=== PATIENT | female | born 1960 | race Caucasian/White ===

== ENCOUNTER 2021-06-25 10:00 | Inpatient (IN) ==
[2021-06-25] MEDS ORDERED: 0.9 % Sodium Chloride 1,000 ML IVC ONE (10:29)
[2021-06-25] MEDS ORDERED: Ipratropium/Albuterol Neb 3 ML IH ONE (10:29)
[2021-06-25] MEDS ORDERED: Azithromycin 500 MG in 0.9 % Sodium Chloride 250 ML IVPB ONE (10:29)
[2021-06-25] MEDS ORDERED: cefTRIAXone 2,000 MG in 0.9 % Sodium Chloride 10 ML IVP ONE (10:29)
[2021-06-25] MEDS ORDERED: methylPREDNISolone 125 MG/2 ML VIAL IVP ONE (10:29)
[2021-06-25] MEDS ORDERED: Acetaminophen 325 MG TABLET PO ONE (10:32)
[2021-06-25 10:51] LABS: Basophils % 0.4 %; Eosinophils # 0.2 K/mcL (0.0-0.6); Eosinophils % 1.5 %; Hematocrit 40.5 % (35.3-44.9); Hemoglobin 13.1 g/dL (11.5-15.4); Immature Granulocytes % 0.2 % (0-4); Lymphocytes # 0.8 K/mcL (0.6-4.6); Lymphocytes % 8.3 %; Mean Corpuscular HGB Conc 32.3 g/dL (31.6-35.5); Mean Corpuscular Hemoglobin 29.4 pg (28.0-33.3); Mean Platelet Volume 8.8 fL (9.4-12.4); Monocytes # 0.5 K/mcL (0.0-1.3); Monocytes % 5.6 %; Neutrophils # 8.2 K/mcL (1.6-8.9); Platelet Count 204 K/mcL (140-400); Red Blood Count 4.45 M/mcL (3.82-4.97); Red Cell Distribution Width 13.2 % (11.5-14.5); White Blood Count 9.7 K/mcL (4.3-11.1)
[2021-06-25] MEDS ORDERED: cefTRIAXone 2,000 MG in 0.9 % Sodium Chloride Mini Bag 100 ML IVPB ONE (11:00)
[2021-06-25 11:07] LABS: Alanine Aminotransferase 8 Units/L (7-52); Albumin 4.3 g/dL (3.5-5.7); Albumin/Globulin Ratio 1.7 (1.1-2.2); Alkaline Phosphatase 53 Units/L (34-104); Aspartate Amino Transferase 15 Units/L (13-39); BUN/Creatinine Ratio 18 (6-26); Bilirubin,Direct 0.2 mg/dL (0.0-0.2); Bilirubin,Indirect 0.4 mg/dL (0.0-1.0); Bilirubin,Total 0.6 mg/dL (0.3-1.0); Blood Urea Nitrogen 12 mg/dL (8-23); Carbon Dioxide 28 mEq/L (23-29); Chloride 102 mEq/L (98-107); Globulin 2.5 g/dL (2.4-3.5); Glucose 123 mg/dL (70-105); Osmolality,Calculated 285 (280-300); Potassium 3.5 mEq/L (3.5-5.1); Sodium 137 mEq/L (136-145); Total Protein 6.8 g/dL (6.4-8.9); eGFR For African Americans > 60 (> 60); eGFR For Non-African Americans > 60 (> 60)
[2021-06-25 11:10] LABS: Troponin I < 0.03 ng/mL (< 0.04)
[2021-06-25] MEDS ORDERED: Naloxone 0.4 MG/ML INJ IVP PRN (11:38)
[2021-06-25] MEDS ORDERED: Ondansetron ODT 4 MG TAB.RAPDIS SL PRN (11:38)
[2021-06-25] MEDS ORDERED: Fluticasone Propionate Nasal 50 MCG/SPRAY BOTTLE NS PRN (11:42)
[2021-06-25] MEDS ORDERED: hydrOXYzine pamoate 25 MG CAPSULE PO PRN (12:00)
[2021-06-25] MEDS: *HR* HYDROcodone/Acet 7.5/325 mg TABLET PO PRN (14:56)
[2021-06-25] MEDS: Gabapentin 400 MG CAPSULE PO SCH ×2 (14:56→20:17)
[2021-06-25] MEDS ORDERED: tiZANidine 4 MG TABLET PO PRN (15:00)
[2021-06-25] MEDS: Metoprolol XL (24 HR) Succ 25 MG TAB.ER.24H PO SCH (17:16)
[2021-06-25] MEDS: Acetaminophen/Butalbital/CaffeineTABLET PO PRN (18:17)
[2021-06-25] MEDS: Benzonatate 100 MG CAPSULE PO PRN (18:21)
[2021-06-25] MEDS: MethylPREDNISolone 40 MG/ML VIAL IVP SCH (20:16)
[2021-06-25] MEDS: Mirtazapine 15 MG TABLET PO SCH (20:17)
[2021-06-25] MEDS: Budesonide/Formoterol 160/4.5 1 PUFF INH IH SCH (21:47)
[2021-06-25] MEDS: Ipratropium/Albuterol Neb 3 ML IH PRN (21:48)
[2021-06-26] MEDS: *HR* Enoxaparin 40 MG/0.4 ML SYRINGE SQ SCH (05:15)
[2021-06-26] MEDS: MethylPREDNISolone 40 MG/ML VIAL IVP SCH ×4 (05:15→23:56)
[2021-06-26 07:19] LABS: Basophils % 0.1 %; Hematocrit 36.6 % (35.3-44.9); Hemoglobin 11.7 g/dL (11.5-15.4); Immature Granulocytes % 0.7 % (0-4); Lymphocytes # 0.7 K/mcL (0.6-4.6); Lymphocytes % 6.1 %; Mean Corpuscular Hemoglobin 29.3 pg (28.0-33.3); Mean Corpuscular Volume 91.7 fL (83.0-100.0); Mean Platelet Volume 9.2 fL (9.4-12.4); Monocytes # 0.3 K/mcL (0.0-1.3); Monocytes % 2.7 %; Neutrophils # 10.1 K/mcL (1.6-8.9); Platelet Count 220 K/mcL (140-400); Red Blood Count 3.99 M/mcL (3.82-4.97); Red Cell Distribution Width 13.2 % (11.5-14.5); Segmented Neutrophils % 90.4 %; White Blood Count 11.2 K/mcL (4.3-11.1)
[2021-06-26 07:23] LABS: BUN/Creatinine Ratio 26 (6-26); Blood Urea Nitrogen 16 mg/dL (8-23); Calcium 8.9 mg/dL (8.6-10.3); Carbon Dioxide 29 mEq/L (23-29); Chloride 106 mEq/L (98-107); Glucose 250 mg/dL (70-105); Magnesium 2.2 mg/dL (1.6-2.6); Osmolality,Calculated 300 (280-300); Potassium 3.8 mEq/L (3.5-5.1); Sodium 140 mEq/L (136-145); eGFR For African Americans > 60 (> 60); eGFR For Non-African Americans > 60 (> 60)
[2021-06-26] MEDS ORDERED: PROTEINASE INHIBITOR IVPB SCH (09:00)
[2021-06-26] MEDS ORDERED: Azithromycin 500 MG in 0.9 % Sodium Chloride 250 ML IVPB ONE (09:00)
[2021-06-26] MEDS ORDERED: ALPHA IVPB SCH (09:00)
[2021-06-26] MEDS: Budesonide/Formoterol 160/4.5 1 PUFF INH IH SCH ×2 (09:01→21:01)
[2021-06-26] MEDS: Ipratropium/Albuterol Neb 3 ML IH PRN ×2 (09:01→14:42)
[2021-06-26] MEDS: cefTRIAXone 2,000 MG in 0.9 % Sodium Chloride Mini Bag 100 ML IVPB SCH (09:07)
[2021-06-26] MEDS: Azithromycin 500 MG in 0.9 % Sodium Chloride 250 ML IVPB SCH (09:07)
[2021-06-26] MEDS: Loratadine 10 MG TABLET PO SCH (09:44)
[2021-06-26] MEDS: Gabapentin 400 MG CAPSULE PO SCH ×3 (09:44→21:51)
[2021-06-26] MEDS: PARoxetine 20 MG TABLET PO SCH (09:47)
[2021-06-26] MEDS: Cholecalciferol (D-3) 1,000 UNIT (25MCG) TABLET PO SCH (09:47)
[2021-06-26] MEDS: Benzonatate 100 MG CAPSULE PO PRN ×2 (09:47→22:04)
[2021-06-26] MEDS: GuaiFENesin Liq 200 MG/10 ML UDC PO PRN ×2 (15:24→22:04)
[2021-06-26] MEDS: *HR* HYDROcodone/Acet 7.5/325 mg TABLET PO PRN (17:25)
[2021-06-26] MEDS: Metoprolol XL (24 HR) Succ 25 MG TAB.ER.24H PO SCH (17:26)
[2021-06-26] MEDS: Mirtazapine 15 MG TABLET PO SCH (21:51)
[2021-06-26 22:17] LABS: Adenovirus Not Detected (Not Detect); Coronavirus 229E Not Detected (Not Detect); Coronavirus HKU1 Not Detected (Not Detect); Coronavirus NL63 Not Detected (Not Detect); Coronavirus OC43 Not Detected (Not Detect); Human Metapneumovirus Not Detected (Not Detect); Human Rhinovirus/Enterovirus Not Detected (Not Detect); SARS-CoV-2 Not Detected (Not Detect)
[2021-06-26 22:20] LABS: Bordetella Pertussis Not Detected (Not Detect); Chlamydophila pneumoniae Not Detected (Not Detect); Influenza A Subtype 2009 H1 Not Detected (Not Detect); Influenza B Not Detected (Not Detect); Mycoplasma pneumoniae Not Detected (Not Detect); Parainfluenza Virus 1 Not Detected (Not Detect); Parainfluenza Virus 2 Not Detected (Not Detect); Parainfluenza Virus 3 Not Detected (Not Detect); Parainfluenza Virus 4 Not Detected (Not Detect); Respiratory Syncytial Virus Not Detected (Not Detect)
[2021-06-27] MEDS: *HR* HYDROcodone/Acet 7.5/325 mg TABLET PO PRN ×2 (00:01→20:28)
[2021-06-27] MEDS: MethylPREDNISolone 40 MG/ML VIAL IVP SCH ×4 (05:58→23:06)
[2021-06-27] MEDS: *HR* Enoxaparin 40 MG/0.4 ML SYRINGE SQ SCH (05:59)
[2021-06-27 06:43] LABS: Basophils % 0.2 %; Hematocrit 34.8 % (35.3-44.9); Immature Granulocytes % 1.8 % (0-4); Lymphocytes # 0.6 K/mcL (0.6-4.6); Lymphocytes % 5.1 %; Mean Corpuscular HGB Conc 31.6 g/dL (31.6-35.5); Mean Corpuscular Hemoglobin 29.3 pg (28.0-33.3); Mean Corpuscular Volume 92.8 fL (83.0-100.0); Monocytes # 0.4 K/mcL (0.0-1.3); Monocytes % 3.2 %; Neutrophils # 10.7 K/mcL (1.6-8.9); Platelet Count 227 K/mcL (140-400); Red Blood Count 3.75 M/mcL (3.82-4.97); Red Cell Distribution Width 13.2 % (11.5-14.5); Segmented Neutrophils % 89.7 %; White Blood Count 11.9 K/mcL (4.3-11.1)
[2021-06-27 06:59] LABS: BUN/Creatinine Ratio 22 (6-26); Blood Urea Nitrogen 15 mg/dL (8-23); Calcium 8.7 mg/dL (8.6-10.3); Carbon Dioxide 31 mEq/L (23-29); Chloride 105 mEq/L (98-107); Glucose 344 mg/dL (70-105); Magnesium 2.3 mg/dL (1.6-2.6); Osmolality,Calculated 306 (280-300); Potassium 3.7 mEq/L (3.5-5.1); Sodium 141 mEq/L (136-145); eGFR For African Americans > 60 (> 60); eGFR For Non-African Americans > 60 (> 60)
[2021-06-27] MEDS: Ipratropium/Albuterol Neb 3 ML IH PRN (09:14)
[2021-06-27] MEDS: Budesonide/Formoterol 160/4.5 1 PUFF INH IH SCH ×2 (09:14→21:11)
[2021-06-27] MEDS: cefTRIAXone 2,000 MG in 0.9 % Sodium Chloride Mini Bag 100 ML IVPB SCH (09:29)
[2021-06-27] MEDS: GuaiFENesin Liq 200 MG/10 ML UDC PO PRN ×2 (09:29→20:27)
[2021-06-27] MEDS: Gabapentin 400 MG CAPSULE PO SCH ×3 (09:29→20:20)
[2021-06-27] MEDS: Loratadine 10 MG TABLET PO SCH (09:30)
[2021-06-27] MEDS: Cholecalciferol (D-3) 1,000 UNIT (25MCG) TABLET PO SCH (09:30)
[2021-06-27] MEDS: PARoxetine 20 MG TABLET PO SCH (09:30)
[2021-06-27] MEDS: Azithromycin 500 MG in 0.9 % Sodium Chloride 250 ML IVPB SCH (10:00)
[2021-06-27] MEDS: GuaiFENesin/Pseudophedrine TABLET PO SCH ×2 (10:00→20:20)
[2021-06-27] MEDS ORDERED: Menthol 1 EACH LOZENGE PO PRN (14:20)
[2021-06-27] MEDS: Acetaminophen/Butalbital/CaffeineTABLET PO PRN (16:18)
[2021-06-27] MEDS: Metoprolol XL (24 HR) Succ 25 MG TAB.ER.24H PO SCH (18:30)
[2021-06-27] MEDS: Mirtazapine 15 MG TABLET PO SCH (20:20)
[2021-06-28] MEDS: Acetaminophen/Butalbital/CaffeineTABLET PO PRN ×2 (03:52→19:49)
[2021-06-28] MEDS: GuaiFENesin Liq 200 MG/10 ML UDC PO PRN ×3 (03:52→19:48)
[2021-06-28] MEDS: Benzonatate 100 MG CAPSULE PO PRN ×2 (03:52→19:49)
[2021-06-28] MEDS: MethylPREDNISolone 40 MG/ML VIAL IVP SCH ×4 (05:30→23:18)
[2021-06-28] MEDS: *HR* Enoxaparin 40 MG/0.4 ML SYRINGE SQ SCH (05:31)
[2021-06-28] MEDS: Ipratropium/Albuterol Neb 3 ML IH PRN ×3 (05:45→21:38)
[2021-06-28 06:31] LABS: Basophils # 0.1 K/mcL (0.0-0.2); Basophils % 0.9 %; Hematocrit 35.7 % (35.3-44.9); Hemoglobin 11.2 g/dL (11.5-15.4); Lymphocytes # 0.7 K/mcL (0.6-4.6); Lymphocytes % 5.7 %; Mean Corpuscular HGB Conc 31.4 g/dL (31.6-35.5); Mean Corpuscular Hemoglobin 29.2 pg (28.0-33.3); Mean Corpuscular Volume 93.2 fL (83.0-100.0); Mean Platelet Volume 9.1 fL (9.4-12.4); Monocytes # 0.3 K/mcL (0.0-1.3); Monocytes % 2.9 %; Neutrophils # 9.9 K/mcL (1.6-8.9); Platelet Count 239 K/mcL (140-400); Red Blood Count 3.83 M/mcL (3.82-4.97); Red Cell Distribution Width 13.2 % (11.5-14.5); Segmented Neutrophils % 85.5 %; White Blood Count 11.6 K/mcL (4.3-11.1)
[2021-06-28 06:54] LABS: BUN/Creatinine Ratio 24 (6-26); Blood Urea Nitrogen 15 mg/dL (8-23); Calcium 8.6 mg/dL (8.6-10.3); Carbon Dioxide 29 mEq/L (23-29); Chloride 101 mEq/L (98-107); Glucose 278 mg/dL (70-105); Osmolality,Calculated 301 (280-300); Potassium 3.3 mEq/L (3.5-5.1); Sodium 140 mEq/L (136-145); eGFR For African Americans > 60 (> 60); eGFR For Non-African Americans > 60 (> 60)
[2021-06-28] MEDS: Cholecalciferol (D-3) 1,000 UNIT (25MCG) TABLET PO SCH (08:37)
[2021-06-28] MEDS: Loratadine 10 MG TABLET PO SCH (08:37)
[2021-06-28] MEDS: PARoxetine 20 MG TABLET PO SCH (08:37)
[2021-06-28] MEDS: Gabapentin 400 MG CAPSULE PO SCH ×3 (08:37→19:49)
[2021-06-28] MEDS: cefTRIAXone 2,000 MG in 0.9 % Sodium Chloride Mini Bag 100 ML IVPB SCH (08:39)
[2021-06-28] MEDS: Azithromycin 500 MG in 0.9 % Sodium Chloride 250 ML IVPB SCH (08:41)
[2021-06-28] MEDS ORDERED: Potassium Chloride Elixir 20 MEQ/15 ML UDC PO ONE (09:08)
[2021-06-28] MEDS: GuaiFENesin/Pseudophedrine TABLET PO SCH ×2 (09:11→19:50)
[2021-06-28] MEDS: Budesonide/Formoterol 160/4.5 1 PUFF INH IH SCH ×2 (09:18→21:38)
[2021-06-28] MEDS ORDERED: Ipratropium/Albuterol Neb 3 ML IH SCH (12:00)
[2021-06-28] MEDS: *HR* HYDROcodone/Acet 7.5/325 mg TABLET PO PRN (15:45)
[2021-06-28] MEDS: Metoprolol XL (24 HR) Succ 25 MG TAB.ER.24H PO SCH (18:24)
[2021-06-28] MEDS: Insulin DETEMIR 100 UNIT/ML X5UNITS SUBQ SCH (19:49)
[2021-06-28] MEDS: Mirtazapine 15 MG TABLET PO SCH (19:58)
[2021-06-29] MEDS: *HR* HYDROcodone/Acet 7.5/325 mg TABLET PO PRN ×2 (00:34→15:34)
[2021-06-29] MEDS: MethylPREDNISolone 40 MG/ML VIAL IVP SCH ×3 (05:23→18:14)
[2021-06-29] MEDS: *HR* Enoxaparin 40 MG/0.4 ML SYRINGE SQ SCH (05:24)
[2021-06-29] MEDS: GuaiFENesin Liq 200 MG/10 ML UDC PO PRN (05:24)
[2021-06-29 06:14] LABS: Hematocrit 35.4 % (35.3-44.9); Hemoglobin 11.2 g/dL (11.5-15.4); Lymphocytes # 0.6 K/mcL (0.6-4.6); Mean Corpuscular HGB Conc 31.6 g/dL (31.6-35.5); Mean Corpuscular Hemoglobin 29.1 pg (28.0-33.3); Mean Corpuscular Volume 91.9 fL (83.0-100.0); Mean Platelet Volume 9.2 fL (9.4-12.4); Platelet Count 239 K/mcL (140-400); Red Blood Count 3.85 M/mcL (3.82-4.97)
[2021-06-29 06:39] LABS: BUN/Creatinine Ratio 27 (6-26); Blood Urea Nitrogen 15 mg/dL (8-23); Calcium 8.6 mg/dL (8.6-10.3); Carbon Dioxide 31 mEq/L (23-29); Chloride 99 mEq/L (98-107); Glucose 264 mg/dL (70-105); Osmolality,Calculated 298 (280-300); Potassium 3.4 mEq/L (3.5-5.1); Sodium 139 mEq/L (136-145); eGFR For African Americans > 60 (> 60); eGFR For Non-African Americans > 60 (> 60)
[2021-06-29] MEDS: Ipratropium/Albuterol Neb 3 ML IH PRN ×3 (06:41→21:31)
[2021-06-29 06:55] LABS: Monocytes # 0.2 K/mcL (0.0-1.3); Neutrophils # 8.6 K/mcL (1.6-8.9)
[2021-06-29 06:56] LABS: Platelet Estimate Normal (Normal); Smudge Cells Present (Not Present)
[2021-06-29] MEDS: Cholecalciferol (D-3) 1,000 UNIT (25MCG) TABLET PO SCH (08:49)
[2021-06-29] MEDS: Gabapentin 400 MG CAPSULE PO SCH ×3 (08:49→20:34)
[2021-06-29] MEDS: PARoxetine 20 MG TABLET PO SCH (08:49)
[2021-06-29] MEDS: cefTRIAXone 2,000 MG in 0.9 % Sodium Chloride Mini Bag 100 ML IVPB SCH (08:49)
[2021-06-29] MEDS: Loratadine 10 MG TABLET PO SCH (08:49)
[2021-06-29] MEDS: GuaiFENesin/Pseudophedrine TABLET PO SCH ×2 (08:51→20:36)
[2021-06-29] MEDS ORDERED: Potassium Chloride Elixir 20 MEQ/15 ML UDC PO ONE (09:06)
[2021-06-29] MEDS ORDERED: *HR* Codeine Sulfate 30 MG TABLET PO PRN (09:39)
[2021-06-29] MEDS: Azithromycin 500 MG in 0.9 % Sodium Chloride 250 ML IVPB SCH (09:55)
[2021-06-29] MEDS: Budesonide/Formoterol 160/4.5 1 PUFF INH IH SCH ×2 (10:29→21:27)
[2021-06-29] MEDS: *HR* Codeine Sulfate 30 MG TABLET PO PRN ×2 (11:52→20:35)
[2021-06-29] MEDS: Metoprolol XL (24 HR) Succ 25 MG TAB.ER.24H PO SCH (18:13)
[2021-06-29] MEDS: Mirtazapine 15 MG TABLET PO SCH (20:34)
[2021-06-29] MEDS: Insulin DETEMIR 100 UNIT/ML X5UNITS SUBQ SCH (20:35)
[2021-06-30] MEDS: MethylPREDNISolone 40 MG/ML VIAL IVP SCH ×3 (00:07→13:59)
[2021-06-30] MEDS: GuaiFENesin Liq 200 MG/10 ML UDC PO PRN ×3 (00:15→13:59)
[2021-06-30] MEDS: Benzonatate 100 MG CAPSULE PO PRN ×2 (01:27→10:41)
[2021-06-30] MEDS: Ipratropium/Albuterol Neb 3 ML IH PRN ×3 (03:49→15:16)
[2021-06-30] MEDS: Acetaminophen/Butalbital/CaffeineTABLET PO PRN ×2 (04:20→10:41)
[2021-06-30 05:59] LABS: Hematocrit 39.5 % (35.3-44.9); Hemoglobin 12.5 g/dL (11.5-15.4); Mean Corpuscular HGB Conc 31.6 g/dL (31.6-35.5); Mean Corpuscular Hemoglobin 28.9 pg (28.0-33.3); Mean Corpuscular Volume 91.4 fL (83.0-100.0); Mean Platelet Volume 9.2 fL (9.4-12.4); Nucleated Red Blood Cells 0.2 /100 WBC (0); Platelet Count 256 K/mcL (140-400); Red Blood Count 4.32 M/mcL (3.82-4.97); Red Cell Distribution Width 13.2 % (11.5-14.5); White Blood Count 12.2 K/mcL (4.3-11.1)
[2021-06-30] MEDS: *HR* Enoxaparin 40 MG/0.4 ML SYRINGE SQ SCH (06:12)
[2021-06-30] MEDS: *HR* HYDROcodone/Acet 7.5/325 mg TABLET PO PRN (06:20)
[2021-06-30 06:35] LABS: BUN/Creatinine Ratio 30 (6-26); Blood Urea Nitrogen 18 mg/dL (8-23); Calcium 8.7 mg/dL (8.6-10.3); Carbon Dioxide 31 mEq/L (23-29); Chloride 98 mEq/L (98-107); Glucose 214 mg/dL (70-105); Magnesium 2.2 mg/dL (1.6-2.6); Osmolality,Calculated 296 (280-300); Potassium 3.3 mEq/L (3.5-5.1); Sodium 139 mEq/L (136-145); eGFR For African Americans > 60 (> 60); eGFR For Non-African Americans > 60 (> 60)
[2021-06-30 07:15] LABS: Lymphocytes # 0.7 K/mcL (0.6-4.6); Monocytes # 0.2 K/mcL (0.0-1.3); Neutrophils # 10.7 K/mcL (1.6-8.9); Platelet Estimate Normal (Normal)
[2021-06-30] MEDS: Budesonide/Formoterol 160/4.5 1 PUFF INH IH SCH (07:54)
[2021-06-30] MEDS: Gabapentin 400 MG CAPSULE PO SCH ×2 (10:03→13:59)
[2021-06-30] MEDS: GuaiFENesin/Pseudophedrine TABLET PO SCH (10:04)
[2021-06-30] MEDS: PARoxetine 20 MG TABLET PO SCH (10:04)
[2021-06-30] MEDS: Loratadine 10 MG TABLET PO SCH (10:05)
[2021-06-30] MEDS: Cholecalciferol (D-3) 1,000 UNIT (25MCG) TABLET PO SCH (10:05)
[2021-06-30] MEDS: cefTRIAXone 2,000 MG in 0.9 % Sodium Chloride Mini Bag 100 ML IVPB SCH (10:05)
[2021-06-30 14:50] VITALS: BP 166/104
[2021-06-30 15:37] VITALS: PULSE 104; RESP 16; TEMP 98.4; O2SAT 94
== END 2021-06-30 15:55 | disposition short-term general hospital (02) | DRG 139 ==
LOC: INPPIK 10:00 → EMEROOPIK 10:00 → INPPIK 12:24
PROVIDERS: ADMIT Internal Medicine; ATTEND Internal Medicine